=== PATIENT | female | born 1990 | race Caucasian/White ===

== ENCOUNTER 2022-02-25 09:49 | Emergency (ER) | payer MEDICAID, OTHER ==
[~2022-02-25] VITALS: Ht 162.6 cm; Wt 65.0 kg
[2022-02-25] MEDS ORDERED: NAP500T PO (13:10)
[2022-02-25] MEDS ORDERED: KETOROLAC TROMETH 30 MG/ML 1ML VIAL IM ONE (13:15)
[2022-02-25 14:14] VITALS: BP 131/92
== END 2022-02-25 13:11 | disposition home or self-care (01) ==
LOC: ER 09:49
DX: S92.354A Nondisplaced fracture of fifth metatarsal bone, right foot, initial encounter for closed fracture (principal); M25.512 Pain in left shoulder; Z79.899 Other long term (current) drug therapy; W01.0XXA Fall on same level from slipping, tripping and stumbling without subsequent striking against object, initial encounter; Y93.89 Activity, other specified; Y92.89 Other specified places as the place of occurrence of the external cause; Y99.8 Other external cause status
CPT/HCPCS: 73030; 73630; 96372; 99284; J1885